=== PATIENT | female | born 1970 | race Caucasian/White ===

== ENCOUNTER 2022-01-09 07:04 | Day surgery (SDC) | payer BC ==
[~2022-01-09] VITALS: Ht 157.5 cm; Wt 78.5 kg
[2022-01-09] MEDS: MEPERIDINE 100 MG INJ. 100 MG/ML VIAL ONE ×2 (10:33→10:46)
[2022-01-09] MEDS: MIDAZOLAM HCL 5 MG/5 ML VIAL ONE ×3 (10:33→10:39)
[2022-01-09] MEDS ORDERED: MIDAZOLAM HCL 5 MG/5 ML VIAL ONE (10:50)
[2022-01-09 15:18] VITALS: BP_SYST 120
== END 2022-01-09 12:44 | disposition home or self-care (01) ==
LOC: SDS 07:04 → SMU 07:05 → SDS 12:44
PROVIDERS: ATTEND Internal Medicine Gastroenterology
DX: Z12.11 Encounter for screening for malignant neoplasm of colon (principal); K29.50 Unspecified chronic gastritis without bleeding; K21.9 Gastro-esophageal reflux disease without esophagitis; K44.9 Diaphragmatic hernia without obstruction or gangrene; K64.8 Other hemorrhoids; Z80.0 Family history of malignant neoplasm of digestive organs; Z20.822 Contact with and (suspected) exposure to COVID-19; Z79.899 Other long term (current) drug therapy
CPT/HCPCS: 36415 ×2; 43239; 45378; 87081; 88305; 88312; 88313; 99152; 99153; U0003; G0378; J2250; J2175; J7030